=== PATIENT | female | born 1985 | race African-American/Black ===

== ENCOUNTER 2021-11-27 10:30 | Inpatient (IN) | payer BC ==
[2021-11-27] MEDS ORDERED: MAGNESIUM 4GM/H20 - 4 GM/100 ML IVPB IVPB ONE (10:52)
[2021-11-27] MEDS ORDERED: TERBUTALINE SULFATE 1 MG/1 ML VIAL SQ ONE ×4 (10:53→19:50)
[2021-11-27] MEDS ORDERED: MAGNESIUM SULFATE 20GM/500ML - 20 GM/500 ML INFUS.BAG ONE ×2 (11:23→19:25)
[2021-11-27] MEDS ORDERED: BETAMET ACET/BETAMET NA PH 30 MG/5 ML VIAL IM ONE (11:39)
[2021-11-27] MEDS ORDERED: MAGNESIUM 4GM/H20 - 4 GM/100 ML IVPB IVPB SCH (11:45)
[2021-11-27] MEDS ORDERED: MAGNESIUM SULFATE 20GM/500ML - 20 GM/500 ML INFUS.BAG IVPB SCH (11:45)
[2021-11-27] MEDS ORDERED: AMPICILLIN SODIUM 2 GM VIAL ONE (11:57)
[2021-11-27] MEDS ORDERED: AMPICILLIN - 2 GM in SODIUM CHLORIDE 100 ML IVPB ONE (12:00)
[2021-11-27 12:22] VITALS: BMI 29.7
[2021-11-27] MEDS ORDERED: BETAMET ACET/BETAMET NA PH 30 MG/5 ML VIAL ONE (12:35)
[2021-11-27] MEDS ORDERED: DEXTROSE 5%-LACTATED RINGERS 1,000 ML IV SCH (13:00)
[2021-11-27 14:07] LABS: HEMATOCRIT 35.9 % (32.4-45.2); HEMOGLOBIN 11.5 GM/dL (10.7-15.3); MCH 22.9 pg (25.7-33.7); MEAN CELL VOLUME 71.4 fl (80-96); MEAN PLT VOLUME 8.9 fl (7.5-11.1); PLATELET COUNT 295 10^3/uL (134-434); RBC 5.03 M/mm3 (3.60-5.2); RDW 14.8 % (11.6-15.6); WHITE BLOOD COUNT 18.9 K/mm3 (4.0-10.0)
[2021-11-27 14:16] LABS: INR 1.08 (0.83-1.09); PROTHROMBIN TIME (PATIENT) 12.4 SEC (9.7-13.0)
[2021-11-27 14:19] LABS: ACTIVATED PTT 36.2 SECONDS (25.2-36.5)
[2021-11-27 14:26] LABS: CALCIUM 7.8 mg/dL (8.5-10.1)
[2021-11-27 14:30] LABS: CREATININE 0.7 mg/dL (0.55-1.3)
[2021-11-27 15:10] LABS: ANISOCYTOSIS 0; MACROCYTOSIS 0
[2021-11-27] MEDS: MAGNESIUM SULFATE 20GM/500ML - 20 GM/500 ML INFUS.BAG IVPB SCH ×2 (15:40→20:00)
[2021-11-27] MEDS ORDERED: AMPICILLIN SODIUM 1 GM VIAL ONE ×2 (15:48→20:00)
[2021-11-27] MEDS: AMPICILLIN - 1 GM in SODIUM CHLORIDE 100 ML IVPB SCH ×2 (15:49→20:00)
[2021-11-27 21:11] VITALS: BP 120/61; PULSE 109; TEMP 98.3
== END 2021-11-27 21:35 | disposition short-term general hospital (02) | DRG 833 ==
LOC: JDEL 10:30 → JLDR 10:45
PROVIDERS: ADMIT Obstetrics & Gynecology; ATTEND Obstetrics & Gynecology
DX: O60.03 Preterm labor without delivery, third trimester (principal); Z3A.30 30 weeks gestation of pregnancy; O42.913 Preterm premature rupture of membranes, unspecified as to length of time between rupture and onset of labor, third trimester
CPT/HCPCS: 36415; 80048; 83735; 85025; 85610; 85730; 86780; 86850; 86900; 86901; 87081; 87086; 87491; 87591; 96372; C9803-CS; U0003; U0005